=== PATIENT | male | born 1945 | race Caucasian/White ===

== ENCOUNTER 2018-06-02 20:35 | Inpatient (IN) | payer OTHER ==
[~2018-06-02] VITALS: Ht 167.6 cm; Wt 78.0 kg
[2018-06-02 22:22] LABS: BASOPHIL % 0.5 % (0-2); RED CELL DISTRIBUTION WIDTH 13.2 % (11.5-14.5)
[2018-06-02 22:23] LABS: PLATELET COUNT 90 x10^3mcL (130-400)
[2018-06-02 22:34] LABS: CALCIUM 8.2 mg/dL (8.5-10.1); CARBON DIOXIDE 26.6 mmol/L (21-32); CHLORIDE SERUM 102 mmol/L (98-107); GLUCOSE SERUM 272 mg/dL (74-106); POTASSIUM SERUM 3.8 mmol/L (3.5-5.1); SODIUM SERUM 140 mmol/L (136-145)
[2018-06-02 22:38] LABS: ALBUMIN 4.1 g/dL (3.4-5.0); ALKALINE PHOSPHATASE 102 U/L (46-116); ALT/SGPT 24 U/L (16-63); AST/SGOT 16 U/L (15-37); BILIRUBIN TOTAL 1.3 mg/dL (0.20-1.00); LIPASE 202 IU/L (73-393); TOTAL PROTEIN, SERUM 8.2 g/dL (6.4-8.2)
[2018-06-02] MEDS ORDERED: METFORMIN HCL1000 MG PO (23:20)
[2018-06-02] MEDS ORDERED: GLIMEPIRIDE2 M1 PO (23:20)
[2018-06-02] MEDS ORDERED: LOSARTAN POTASS50 M1 PO (23:21)
[2018-06-02] MEDS ORDERED: NOR10 PO (23:40)
[2018-06-03 00:01] LABS: microscopic required? NO
[2018-06-03 00:10] LABS: UA SPECIFIC GRAVITY 1.015 (1.005-1.035); urine erythrocyte NEGATIVE (NEGATIVE)
[2018-06-03 00:56] VITALS: BP 140/90
[2018-06-03 01:23] LABS: PHOSPHOROUS 2.9 mg/dL (2.5-4.9)
[2018-06-03 01:34] LABS: CHOLESTEROL/HDL RATIO 4.2
[2018-06-03 05:09] VITALS: BP 153/87
[2018-06-03 06:24] LABS: RED CELL DISTRIBUTION WIDTH 13.2 % (11.5-14.5)
[2018-06-03 06:41] LABS: CALCIUM 7.9 mg/dL (8.5-10.1); CARBON DIOXIDE 25.7 mmol/L (21-32); CHLORIDE SERUM 103 mmol/L (98-107); CREATININE SERUM 0.8 mg/dL (0.7-1.3); GLUCOSE SERUM 250 mg/dL (74-106); POTASSIUM SERUM 4.1 mmol/L (3.5-5.1); SODIUM SERUM 139 mmol/L (136-145)
[2018-06-03 06:57] LABS: BASOPHIL % 0 % (0-2); PLATELET COUNT 72 x10^3mcL (130-400)
[2018-06-03 07:45] VITALS: BP 146/88
[2018-06-03 10:08] VITALS: BP 122/68
[2018-06-03 17:00] VITALS: BP 138/78
[2018-06-03 17:01] LABS: RED CELL DISTRIBUTION WIDTH 13.3 % (11.5-14.5)
[2018-06-03 17:11] LABS: PLATELET COUNT 49 x10^3mcL (130-400)
[2018-06-03 17:14] LABS: CALCIUM 7.3 mg/dL (8.5-10.1); CARBON DIOXIDE 23.6 mmol/L (21-32); CHLORIDE SERUM 109 mmol/L (98-107); CREATININE SERUM 1.1 mg/dL (0.7-1.3); GLUCOSE SERUM 174 mg/dL (74-106); POTASSIUM SERUM 3.4 mmol/L (3.5-5.1); SODIUM SERUM 142 mmol/L (136-145)
[2018-06-03 17:19] LABS: ALBUMIN 2.8 g/dL (3.4-5.0); ALKALINE PHOSPHATASE 69 U/L (46-116); ALT/SGPT 67 U/L (16-63); AST/SGOT 77 U/L (15-37); BILIRUBIN TOTAL 1.29 mg/dL (0.20-1.00); TOTAL PROTEIN, SERUM 5.9 g/dL (6.4-8.2)
[2018-06-03 18:02] LABS: BAND NEUTROPHIL 14 % (0-10); BASOPHIL 0 % (0-2); MONOCYTE 8 % (0-7); PLATELET MORPHOLOGY PLATELETS DECREASED; SEGMENTED NEUTROPHILS 75 % (37-75); rbc morphology (normal/abnorm) NORMAL (NORMAL)
[2018-06-03 20:00] VITALS: BP 129/96
[2018-06-04] VITALS (7 sets, daily range): BP systolic 114–142; BP diastolic 74–82; Ht 167.6 cm; Wt 78.0 kg
[2018-06-04 04:37] LABS: RED CELL DISTRIBUTION WIDTH 13.5 % (11.5-14.5)
[2018-06-04 04:50] LABS: CALCIUM 7.3 mg/dL (8.5-10.1); CHLORIDE SERUM 106 mmol/L (98-107); CREATININE SERUM 1.5 mg/dL (0.7-1.3); GLUCOSE SERUM 244 mg/dL (74-106); POTASSIUM SERUM 4.6 mmol/L (3.5-5.1); SODIUM SERUM 140 mmol/L (136-145)
[2018-06-04 05:05] LABS: PLATELET COUNT 90 x10^3mcL (130-400)
[2018-06-04 05:17] LABS: MAGNESIUM 1.8 mg/dL (1.8-2.4); PHOSPHOROUS 4.3 mg/dL (2.5-4.9)
[2018-06-04 05:19] LABS: BAND NEUTROPHIL 5 % (0-10); MONOCYTE 6 % (0-7); PLATELET MORPHOLOGY PLATELETS DECREASED; SEGMENTED NEUTROPHILS 85 % (37-75); rbc morphology (normal/abnorm) NORMAL (NORMAL)
[2018-06-04 19:54] LABS: RED CELL DISTRIBUTION WIDTH 13.1 % (11.5-14.5)
[2018-06-04 19:55] LABS: BASOPHIL % 0 % (0-2); PLATELET COUNT 87 x10^3mcL (130-400)
[2018-06-05 00:23] VITALS: BP 136/69
[2018-06-05 05:40] VITALS: BP 139/76
[2018-06-05 06:29] LABS: BASOPHIL % 0.1 % (0-2); RED CELL DISTRIBUTION WIDTH 13.1 % (11.5-14.5)
[2018-06-05 06:37] LABS: PLATELET COUNT 79 x10^3mcL (130-400)
[2018-06-05 06:58] LABS: CALCIUM 7.4 mg/dL (8.5-10.1); CARBON DIOXIDE 30.3 mmol/L (21-32); CHLORIDE SERUM 106 mmol/L (98-107); CREATININE SERUM 1.1 mg/dL (0.7-1.3); GLUCOSE SERUM 150 mg/dL (74-106); MAGNESIUM 1.8 mg/dL (1.8-2.4); PHOSPHOROUS 2.2 mg/dL (2.5-4.9); POTASSIUM SERUM 3.7 mmol/L (3.5-5.1); SODIUM SERUM 142 mmol/L (136-145)
[2018-06-05 07:05] LABS: BILIRUBIN DIRECT 0.32 mg/dL (0.0-0.2); BILIRUBIN TOTAL 1.5 mg/dL (0.20-1.00)
[2018-06-05 07:08] LABS: ALBUMIN 2.4 g/dL (3.4-5.0); TOTAL PROTEIN, SERUM 5.8 g/dL (6.4-8.2)
[2018-06-05 09:39] VITALS: BP 144/79
[2018-06-05 13:10] VITALS: BP 135/73
[2018-06-05 18:11] VITALS: BP 122/77
[2018-06-05 20:39] VITALS: BP 140/79
[2018-06-06 04:25] VITALS: BP 129/67
[2018-06-06 06:46] LABS: BASOPHIL % 0.2 % (0-2); RED CELL DISTRIBUTION WIDTH 12.6 % (11.5-14.5)
[2018-06-06 06:55] LABS: PLATELET COUNT 92 x10^3mcL (130-400)
[2018-06-06 07:08] LABS: CALCIUM 7.4 mg/dL (8.5-10.1); CARBON DIOXIDE 31.3 mmol/L (21-32); CHLORIDE SERUM 104 mmol/L (98-107); CREATININE SERUM 0.9 mg/dL (0.7-1.3); GLUCOSE SERUM 142 mg/dL (74-106); PHOSPHOROUS 2.4 mg/dL (2.5-4.9); POTASSIUM SERUM 3.2 mmol/L (3.5-5.1); SODIUM SERUM 142 mmol/L (136-145)
[2018-06-06 09:16] VITALS: BP 149/80
[2018-06-06 17:41] VITALS: BP 142/73
[2018-06-06 21:13] VITALS: BP 137/82
[2018-06-07 05:04] VITALS: BP 140/76
[2018-06-07 06:41] LABS: BASOPHIL % 0.4 % (0-2); RED CELL DISTRIBUTION WIDTH 12.5 % (11.5-14.5)
[2018-06-07 06:43] LABS: PLATELET COUNT 94 x10^3mcL (130-400)
[2018-06-07 07:13] LABS: CARBON DIOXIDE 30.3 mmol/L (21-32); CHLORIDE SERUM 106 mmol/L (98-107); CREATININE SERUM 0.7 mg/dL (0.7-1.3); GLUCOSE SERUM 166 mg/dL (74-106); MAGNESIUM 2.1 mg/dL (1.8-2.4); PHOSPHOROUS 2.3 mg/dL (2.5-4.9); POTASSIUM SERUM 3.2 mmol/L (3.5-5.1); SODIUM SERUM 143 mmol/L (136-145)
[2018-06-07 09:00] VITALS: BP 143/78
[2018-06-07 14:29] VITALS: BP 143/78
[2018-06-07 14:34] VITALS: BP 143/78
== END 2018-06-07 15:32 | disposition home health service (06) | DRG 414 ==
LOC: ED 20:35 → DU 23:40 → IC 06-03 17:07 → DU 06-04 12:49 → MU 06-05 11:49
PROVIDERS: Anesthesiology; Emergency Medicine; Surgery; ADMIT Internal Medicine
PROC: 0BQT0ZZ Repair Diaphragm, Open Approach (ICD-10-PCS; 2018-06-03)
PROC: 0FT40ZZ Resection of Gallbladder, Open Approach (ICD-10-PCS; principal; 2018-06-03 12:00)
DX: K80.20 Calculus of gallbladder without cholecystitis without obstruction (principal); N17.0 Acute kidney failure with tubular necrosis; E43 Unspecified severe protein-calorie malnutrition; E11.65 Type 2 diabetes mellitus with hyperglycemia; M94.0 Chondrocostal junction syndrome [Tietze]; I10 Essential (primary) hypertension; Z68.29 Body mass index [BMI] 29.0-29.9, adult; Z79.84 Long term (current) use of oral hypoglycemic drugs
CPT/HCPCS: 82962; 83880; 94150; 97110-GP; 97116-GP; 97530-GP; A9698; J0330; J0690; J1170; J1815; J1885; J1940; J2270; J2405; J2704; J2710; J2765; J3010; J3490; J7030; J7050; J7120; P9035; Q0092; Q9967